=== PATIENT | male | born 1985 | race Caucasian/White ===

== ENCOUNTER 2021-01-25 01:07 | Emergency (ER) | payer OTHER ==
[~2021-01-25 01:07] MED LIST: NO MEDS
[2021-01-25] MEDS ORDERED: ZPAK PO (02:27)
[2021-01-25 02:40] VITALS: BP 109/60
== END 2021-01-25 02:40 | disposition home or self-care (01) | DRG 179 ==
LOC: ED 01:07
DX: U07.1 COVID-19 (principal); J40 Bronchitis, not specified as acute or chronic